=== PATIENT | female | born 1990 | race African-American/Black ===

== ENCOUNTER 2020-11-12 16:19 | Inpatient (IN) | payer BC, OTHER ==
[~2020-11-12] VITALS: Ht 175.3 cm; Wt 83.0 kg
[2020-11-12 17:13] LABS: HEMOGLOBIN 9.5 gm/dl (12.3-15.3); RED BLOOD COUNT 4.25 M/UL (4.00-5.10); WHITE BLOOD COUNT 6.9 K/UL (4.5-11.0)
[2020-11-13] MEDS ORDERED: FERROUS SULFAT325 M2 PO (15:40)
[2020-11-13] MEDS ORDERED: COLACE100 MG PO (15:40)
[2020-11-13] MEDS ORDERED: IBU600 MG PO (15:40)
[2020-11-14 06:19] LABS: HEMOGLOBIN 9.3 gm/dl (12.3-15.3)
== END 2020-11-14 17:18 | disposition home or self-care (01) | DRG 807 ==
LOC: GENOP 16:19 → OB 16:37
PROVIDERS: ADMIT Obstetrics & Gynecology
PROC: 0U7C7ZZ Dilation of Cervix, Via Natural or Artificial Opening (ICD-10-PCS; 2020-11-12)
PROC: 3E033VJ Introduction of Other Hormone into Peripheral Vein, Percutaneous Approach (ICD-10-PCS; 2020-11-12)
PROC: 4A1HXCZ Monitoring of Products of Conception, Cardiac Rate, External Approach (ICD-10-PCS; 2020-11-12)
PROC: 10E0XZZ Delivery of Products of Conception, External Approach (ICD-10-PCS; principal; 2020-11-13)
PROC: 10907ZC Drainage of Amniotic Fluid, Therapeutic from Products of Conception, Via Natural or Artificial Opening (ICD-10-PCS; 2020-11-13)
PROC: 0UQMXZZ Repair Vulva, External Approach (ICD-10-PCS; 2020-11-13)
DX: O76 Abnormality in fetal heart rate and rhythm complicating labor and delivery (principal); Z37.0 Single live birth; Z3A.39 39 weeks gestation of pregnancy; O70.0 First degree perineal laceration during delivery; Z20.822 Contact with and (suspected) exposure to COVID-19
CPT/HCPCS: 36415; 51702; 81001; 82800; 85014; 85018; 85025; 90471; 90715; J2210; J2405; J2590; J7120; U0003